=== PATIENT | male | born 1980 | race Caucasian/White ===

== ENCOUNTER → 2017-06-25 | Outpatient (CLI) | payer OTHER ==
[~2017-06-25] MED LIST: AMIT50 PO; Bactrim Ds Tab1 EACH PO; CEPH500 PO; CYCL10 PO; DULO60 PO; HEMOTOB PR; HYDACE5 PO; IBUP600; IBUP800 PO; METR500 PO; OXYACE5T PO; OXYACE7.5T PO; Prednisone20 MG PO; SULTRIDS PO; TRAM50 PO; Zofran Odt4 MG SL
[2017-06-25 07:46] LABS: BASOPHILS ABSOLUTE AUTO 0.02 K/mm3 (0.00-0.23); BASOPHILS PERCENT AUTO 0 % (0-2); EOSINOPHILS ABSOLUTE AUTO 0.16 K/mm3 (0.00-0.68); EOSINOPHILS PERCENT AUTO 2 % (0-6); Hematocrit 42.2 % (37.0-53.0); Hemoglobin 14.7 g/dL (13.5-17.5); IMMATURE GRAN ABSOLUTE AUTO 0.02 K/mm3 (0.00-0.10); IMMATURE GRAN PERCENT AUTO 0 % (0-1); LYMPHOCYTES ABSOLUTE AUTO 1.67 K/mm3 (0.84-5.20); LYMPHOCYTES PERCENT AUTO 18 % (21-46); MONOCYTES ABSOLUTE AUTO 0.81 K/mm3 (0.16-1.47); MONOCYTES PERCENT AUTO 9 % (4-13); Mean Corpuscular HGB 32.9 pg (26.0-34.0); Mean Corpuscular HGB Conc 34.8 g/dL (31.5-36.5); Mean Corpuscular Volume 94 fL (80-100); Mean Platelet Volume 8.8 fL (9.1-12.4); NEUTROPHILS ABSOLUTE AUTO 6.87 K/mm3 (1.96-9.15); NEUTROPHILS PERCENT AUTO 72 % (41-73); Platelet Count 348 K/mm3 (150-400); RDW Coefficient Variation 12.7 % (11.7-14.2); RDW Standard Deviation 43.8 fL (35.1-46.3); Red Blood Cell Count 4.47 M/mm3 (4.30-5.90); White Blood Cell Count 9.55 K/mm3 (4.00-11.30)
[2017-06-25 07:58] LABS: Alanine Aminotransfer (ALT/SGP 32 U/L (12-78); Albumin, Blood 3.8 g/dL (3.4-5.0); Alk Phos 103 U/L (40-126); Anion Gap 8 mmol/L (6-16); Aspartate Aminotrans (AST/SGOT 15 U/L (12-37); Bilirubin, Total 0.3 mg/dL (0.1-1.0); Blood Urea Nitrogen 15 mg/dL (8-24); Bun/Creatinine Ratio 14.2 (12.0-20.0); CO2, Blood 28 mmol/L (21-32); Calcium, Blood 9.3 mg/dL (8.5-10.1); Chloride, Blood 102 mmol/L (98-108); Creatinine, Blood 1.06 mg/dL (0.60-1.20); Globulin, Blood 3.7 g/dL (2.2-4.0); Glomerular Filtration Rate >60 (60-); Glucose, Blood 87 mg/dL (70-99); Potassium, Blood 4.5 mmol/L (3.5-5.5); Sodium, Blood 138 mmol/L (136-145); Total Protein, Blood 7.5 g/dL (6.4-8.2)
== END | disposition home or self-care (01) ==
LOC: LAB EV 07:42 → LAB SHORT 07:42
PROVIDERS: Physician Assistant Medical
DX: R10.30 Lower abdominal pain, unspecified (principal)
CPT/HCPCS: 80053; 83690; 85025

== ENCOUNTER → 2017-07-05 | Outpatient (CLI) | payer OTHER ==
[2017-07-05 11:50] LABS: BASOPHILS ABSOLUTE AUTO 0.03 K/mm3 (0.00-0.23); BASOPHILS PERCENT AUTO 0 % (0-2); EOSINOPHILS ABSOLUTE AUTO 0.79 K/mm3 (0.00-0.68); EOSINOPHILS PERCENT AUTO 8 % (0-6); Hematocrit 45.4 % (37.0-53.0); IMMATURE GRAN ABSOLUTE AUTO 0.04 K/mm3 (0.00-0.10); IMMATURE GRAN PERCENT AUTO 0 % (0-1); LYMPHOCYTES ABSOLUTE AUTO 2.35 K/mm3 (0.84-5.20); LYMPHOCYTES PERCENT AUTO 22 % (21-46); MONOCYTES ABSOLUTE AUTO 0.75 K/mm3 (0.16-1.47); MONOCYTES PERCENT AUTO 7 % (4-13); Mean Corpuscular HGB 32.5 pg (26.0-34.0); Mean Corpuscular HGB Conc 35.2 g/dL (31.5-36.5); Mean Corpuscular Volume 92 fL (80-100); Mean Platelet Volume 9.1 fL (9.1-12.4); NEUTROPHILS ABSOLUTE AUTO 6.55 K/mm3 (1.96-9.15); NEUTROPHILS PERCENT AUTO 62 % (41-73); Platelet Count 403 K/mm3 (150-400); RDW Coefficient Variation 12.9 % (11.7-14.2); RDW Standard Deviation 43.4 fL (35.1-46.3); Red Blood Cell Count 4.92 M/mm3 (4.30-5.90); White Blood Cell Count 10.51 K/mm3 (4.00-11.30)
[2017-07-05 12:02] LABS: Alanine Aminotransfer (ALT/SGP 35 U/L (12-78); Albumin, Blood 3.4 g/dL (3.4-5.0); Albumin/Globulin Ratio 0.9 (0.8-1.8); Alk Phos 101 U/L (40-126); Anion Gap 7 mmol/L (6-16); Aspartate Aminotrans (AST/SGOT 17 U/L (12-37); Bilirubin, Total 0.4 mg/dL (0.1-1.0); Blood Urea Nitrogen 13 mg/dL (8-24); Bun/Creatinine Ratio 11.6 (12.0-20.0); CO2, Blood 28 mmol/L (21-32); Calcium, Blood 8.8 mg/dL (8.5-10.1); Chloride, Blood 103 mmol/L (98-108); Creatinine, Blood 1.12 mg/dL (0.60-1.20); Globulin, Blood 3.7 g/dL (2.2-4.0); Glomerular Filtration Rate >60 (60-); Glucose, Blood 86 mg/dL (70-99); Potassium, Blood 3.6 mmol/L (3.5-5.5); Sodium, Blood 138 mmol/L (136-145); Total Protein, Blood 7.1 g/dL (6.4-8.2)
[2017-07-07 08:17] LABS: Hepatitis C Antibody Non Reactive (NR)
== END | disposition home or self-care (01) ==
LOC: LAB EV 11:46 → LAB SHORT 11:46
PROVIDERS: Physician Assistant
DX: R10.30 Lower abdominal pain, unspecified (principal); R19.7 Diarrhea, unspecified
CPT/HCPCS: 80053; 83690; 85025; 86704; 86708; 86803; 87340

== ENCOUNTER 2017-07-06 05:49 | Inpatient (IN) | payer OTHER ==
[~2017-07-06] VITALS: Ht 180.3 cm; Wt 79.8 kg
[~2017-07-06 05:49] MED LIST changes: -METR500 PO
[2017-07-06 06:30] LABS: BASOPHILS ABSOLUTE AUTO 0.04 K/mm3 (0.00-0.23); BASOPHILS PERCENT AUTO 0 % (0-2); EOSINOPHILS ABSOLUTE AUTO 1.18 K/mm3 (0.00-0.68); EOSINOPHILS PERCENT AUTO 8 % (0-6); Hematocrit 47.2 % (37.0-53.0); Hemoglobin 15.9 g/dL (13.5-17.5); IMMATURE GRAN ABSOLUTE AUTO 0.09 K/mm3 (0.00-0.10); IMMATURE GRAN PERCENT AUTO 1 % (0-1); LYMPHOCYTES ABSOLUTE AUTO 2.58 K/mm3 (0.84-5.20); LYMPHOCYTES PERCENT AUTO 16 % (21-46); MONOCYTES ABSOLUTE AUTO 0.83 K/mm3 (0.16-1.47); MONOCYTES PERCENT AUTO 5 % (4-13); Mean Corpuscular HGB 31.7 pg (26.0-34.0); Mean Corpuscular HGB Conc 33.7 g/dL (31.5-36.5); Mean Corpuscular Volume 94 fL (80-100); NEUTROPHILS PERCENT AUTO 70 % (41-73); Platelet Count 404 K/mm3 (150-400); RDW Coefficient Variation 12.8 % (11.7-14.2); RDW Standard Deviation 44.2 fL (35.1-46.3); Red Blood Cell Count 5.01 M/mm3 (4.30-5.90); White Blood Cell Count 15.72 K/mm3 (4.00-11.30)
[2017-07-06 06:43] LABS: Alanine Aminotransfer (ALT/SGP 29 U/L (12-78); Albumin, Blood 3.3 g/dL (3.4-5.0); Albumin/Globulin Ratio 0.8 (0.8-1.8); Alk Phos 101 U/L (50-136); Anion Gap 7 mmol/L (6-16); Aspartate Aminotrans (AST/SGOT 11 U/L (12-37); Bilirubin, Total 0.4 mg/dL (0.1-1.0); Blood Urea Nitrogen 16 mg/dL (8-24); Bun/Creatinine Ratio 13.9 (12.0-20.0); CO2, Blood 29 mmol/L (21-32); Calcium, Blood 8.3 mg/dL (8.5-10.1); Chloride, Blood 101 mmol/L (98-108); Creatinine, Blood 1.15 mg/dL (0.60-1.20); Globulin, Blood 3.9 g/dL (2.2-4.0); Glomerular Filtration Rate >60 (60-); Glucose, Blood 134 mg/dL (70-99); Potassium, Blood 3.8 mmol/L (3.5-5.5); Sodium, Blood 137 mmol/L (136-145); Total Protein, Blood 7.2 g/dL (6.4-8.2)
[2017-07-06 13:01] LABS: Adenovirus F 40/41 Not Detected (NOT DETECT); Astrovirus Not Detected (NOT DETECT); Campylobacter Sp Not Detected (NOT DETECT); Cryptosporidium Not Detected (NOT DETECT); Cyclospora Cayetanensis Not Detected (NOT DETECT); E. Coli O157 Not Detected (NOT DETECT); Entamoeba Histolytica Not Detected (NOT DETECT); Enteroaggregative E. coli-EAEC Not Detected (NOT DETECT); Enteropathogenic E. coli-EPEC Not Detected (NOT DETECT); Enterotoxigenic E. coli-ETEC Not Detected (NOT DETECT); Giardia Lamblia Not Detected (NOT DETECT); Norovirus GI/GII Not Detected (NOT DETECT); Plesiomonas Shigelloides Not Detected (NOT DETECT); Rotavirus A Not Detected (NOT DETECT); Salmonella Sp Not Detected (NOT DETECT); Sapovirus Not Detected (NOT DETECT); Shiga Toxin-prod E. coli-STEC Not Detected (NOT DETECT); Shigella/Enteroin E. coli-EIEC Not Detected (NOT DETECT); Vibrio Cholerae Not Detected (NOT DETECT); Vibrio Sp Not Detected (NOT DETECT); Yersinia Enterocolitica Not Detected (NOT DETECT)
[2017-07-07 05:02] LABS: BASOPHILS ABSOLUTE AUTO 0.03 K/mm3 (0.00-0.23); BASOPHILS PERCENT AUTO 0 % (0-2); EOSINOPHILS ABSOLUTE AUTO 1.08 K/mm3 (0.00-0.68); EOSINOPHILS PERCENT AUTO 11 % (0-6); Hematocrit 41.6 % (37.0-53.0); IMMATURE GRAN ABSOLUTE AUTO 0.04 K/mm3 (0.00-0.10); IMMATURE GRAN PERCENT AUTO 0 % (0-1); LYMPHOCYTES ABSOLUTE AUTO 2.41 K/mm3 (0.84-5.20); LYMPHOCYTES PERCENT AUTO 25 % (21-46); MONOCYTES ABSOLUTE AUTO 0.73 K/mm3 (0.16-1.47); MONOCYTES PERCENT AUTO 8 % (4-13); Mean Corpuscular HGB 31.7 pg (26.0-34.0); Mean Corpuscular HGB Conc 33.7 g/dL (31.5-36.5); Mean Corpuscular Volume 94 fL (80-100); NEUTROPHILS ABSOLUTE AUTO 5.36 K/mm3 (1.96-9.15); NEUTROPHILS PERCENT AUTO 56 % (41-73); Platelet Count 298 K/mm3 (150-400); RDW Coefficient Variation 12.7 % (11.7-14.2); Red Blood Cell Count 4.41 M/mm3 (4.30-5.90); White Blood Cell Count 9.65 K/mm3 (4.00-11.30)
[2017-07-07 05:36] LABS: Anion Gap 4 mmol/L (6-16); Blood Urea Nitrogen 13 mg/dL (8-24); Bun/Creatinine Ratio 12.5 (12.0-20.0); CO2, Blood 29 mmol/L (21-32); Calcium, Blood 7.6 mg/dL (8.5-10.1); Chloride, Blood 104 mmol/L (98-108); Creatinine, Blood 1.04 mg/dL (0.60-1.20); Glomerular Filtration Rate >60 (60-); Glucose, Blood 83 mg/dL (70-99); Potassium, Blood 4.8 mmol/L (3.5-5.5); Sodium, Blood 137 mmol/L (136-145)
[2017-07-07] MEDS ORDERED: METR500 PO (11:26)
== END 2017-07-07 11:35 | disposition home or self-care (01) | DRG 392 ==
LOC: ER 05:49 → MEDS 08:16 → ENPENDDIS 07-07 11:08 → MEDS 07-07 11:35
PROVIDERS: Emergency Medicine; Hospitalist
DX: A08.4 Viral intestinal infection, unspecified (principal); D72.829 Elevated white blood cell count, unspecified; Z87.11 Personal history of peptic ulcer disease
CPT/HCPCS: 36415; 74019; 74177; 80048; 80053; 81000; 83690; 85025; 86704; 86708; 86803; 87340; 87507; 96361; 96374; 96375; 99285; C9113; J0744; J1170; J3480; J7030; Q9967

== ENCOUNTER 2018-08-09 08:28 | Emergency (ER) | payer OTHER ==
[~2018-08-09] VITALS: Ht 180.3 cm; Wt 88.5 kg
[~2018-08-09 08:28] MED LIST changes: +METR500 PO
[2018-08-09 09:16] LABS: BASOPHILS ABSOLUTE AUTO 0.02 K/mm3 (0.00-0.23); BASOPHILS PERCENT AUTO 0 % (0-2); EOSINOPHILS ABSOLUTE AUTO 0.43 K/mm3 (0.00-0.68); EOSINOPHILS PERCENT AUTO 8 % (0-6); Hematocrit 40.2 % (37.0-53.0); Hemoglobin 13.3 g/dL (13.5-17.5); IMMATURE GRAN ABSOLUTE AUTO 0.01 K/mm3 (0.00-0.10); IMMATURE GRAN PERCENT AUTO 0 % (0-1); LYMPHOCYTES ABSOLUTE AUTO 1.45 K/mm3 (0.84-5.20); LYMPHOCYTES PERCENT AUTO 27 % (21-46); MONOCYTES ABSOLUTE AUTO 0.46 K/mm3 (0.16-1.47); MONOCYTES PERCENT AUTO 9 % (4-13); Mean Corpuscular HGB 31.7 pg (26.0-34.0); Mean Corpuscular HGB Conc 33.1 g/dL (31.5-36.5); Mean Corpuscular Volume 96 fL (80-100); Mean Platelet Volume 9.7 fL (9.1-12.4); NEUTROPHILS ABSOLUTE AUTO 3.01 K/mm3 (1.96-9.15); NEUTROPHILS PERCENT AUTO 56 % (41-73); Platelet Count 243 K/mm3 (150-400); RDW Coefficient Variation 12.2 % (11.7-14.2); RDW Standard Deviation 42.4 fL (35.1-46.3); White Blood Cell Count 5.38 K/mm3 (4.00-11.30)
[2018-08-09 09:46] LABS: Alanine Aminotransfer (ALT/SGP 28 U/L (12-78); Albumin, Blood 3.6 g/dL (3.4-5.0); Albumin/Globulin Ratio 1.1 (0.8-1.8); Alk Phos 97 U/L (50-136); Anion Gap 5 mmol/L (6-16); Aspartate Aminotrans (AST/SGOT 22 U/L (12-37); Bilirubin, Total 0.2 mg/dL (0.1-1.0); Blood Urea Nitrogen 15 mg/dL (8-24); Bun/Creatinine Ratio 20.5 (12.0-20.0); CO2, Blood 25 mmol/L (21-32); Calcium, Blood 8.5 mg/dL (8.5-10.1); Chloride, Blood 108 mmol/L (98-108); Creatinine, Blood 0.73 mg/dL (0.60-1.20); Globulin, Blood 3.3 g/dL (2.2-4.0); Glomerular Filtration Rate >60 (60-); Glucose, Blood 93 mg/dL (70-99); Potassium, Blood 4.8 mmol/L (3.5-5.5); Sodium, Blood 138 mmol/L (136-145); Total Protein, Blood 6.9 g/dL (6.4-8.2)
[2018-08-09] MEDS ORDERED: SENN187 PO (10:20)
[2018-08-09] MEDS ORDERED: METO5A PO (10:20)
[2018-08-09] MEDS ORDERED: Tylenol325 MG PO (10:21)
== END 2018-08-09 10:40 | disposition home or self-care (01) ==
LOC: ER 08:28
PROVIDERS: Physician Assistant
DX: K56.0 Paralytic ileus (principal); K52.9 Noninfective gastroenteritis and colitis, unspecified
CPT/HCPCS: 36415; 74177; 80053; 83690; 85025; 96361; 96374-59; 96375; 99284-25; J1170; J2405; J2765; J7030; Q9967

== ENCOUNTER 2019-11-05 10:55 | Day surgery (SDC) | payer OTHER ==
[~2019-11-05] VITALS: Ht 177.8 cm; Wt 80.7 kg
[~2019-11-05 10:55] MED LIST changes: +LISI10 PO; +METO5A PO; +SENN187 PO; +Tylenol325 MG PO
--- NOTE | 2019-11-05 11:33 | NUR ---
11/05/19 1133 Eddie Olea CALL LIGHT WITHIN REACH
--- NOTE | 2019-11-05 13:51 | NUR ---
11/05/19 1351 Myla Thomas PT. VERBALIZES HE HAS GOTTEN SICK WITH TRAMADOL BEFORE EVEN WHEN TAKING WITH FOOD. PT. VERBALIZES HE CAN TRY IT AGAIN BUT PROBABLY WON'T TAKE IT. DR. VENEGAS WAS IN SURGERY. PT. INSTRUCTED THAT DR. VENEGAS LIKES TO HAVE OTC MEDS FIRST & THEN TAKE PAIN RX IF NEEDED. PT. INSTRUCTED THAT IF TRAMADOL DIDN'T WORK TO CONTACT DR. VENEGAS.
== END 2019-11-05 13:50 | disposition home or self-care (01) ==
LOC: ORSCSDS 10:55
PROVIDERS: Orthopaedic Surgery
PROC: 01N54ZZ Release Median Nerve, Percutaneous Endoscopic Approach (ICD-10-PCS; principal; 2019-11-05 12:00)
DX: G56.02 Carpal tunnel syndrome, left upper limb (principal); I10 Essential (primary) hypertension; F41.8 Other specified anxiety disorders; Z79.899 Other long term (current) drug therapy
CPT/HCPCS: J2250; J3010; J7120

== ENCOUNTER 2020-07-22 19:15 | Emergency (ER) | payer OTHER ==
[~2020-07-22] VITALS: Ht 177.8 cm; Wt 87.5 kg
[2020-07-22 19:45] LABS: BASOPHILS ABSOLUTE AUTO 0.03 K/mm3 (0.00-0.23); BASOPHILS PERCENT AUTO 0 % (0-2); EOSINOPHILS ABSOLUTE AUTO 0.37 K/mm3 (0.00-0.68); EOSINOPHILS PERCENT AUTO 4 % (0-6); Hematocrit 41.8 % (37.0-53.0); Hemoglobin 14.7 g/dL (13.5-17.5); IMMATURE GRAN ABSOLUTE AUTO 0.03 K/mm3 (0.00-0.10); IMMATURE GRAN PERCENT AUTO 0 % (0-1); LYMPHOCYTES ABSOLUTE AUTO 2.27 K/mm3 (0.84-5.20); LYMPHOCYTES PERCENT AUTO 24 % (21-46); MONOCYTES ABSOLUTE AUTO 0.59 K/mm3 (0.16-1.47); MONOCYTES PERCENT AUTO 6 % (4-13); Mean Corpuscular HGB Conc 35.2 g/dL (31.5-36.5); Mean Corpuscular Volume 94 fL (80-100); Mean Platelet Volume 8.7 fL (9.1-12.4); NEUTROPHILS ABSOLUTE AUTO 6.07 K/mm3 (1.96-9.15); NEUTROPHILS PERCENT AUTO 65 % (41-73); Platelet Count 318 K/mm3 (150-400); RDW Coefficient Variation 11.9 % (11.7-14.2); RDW Standard Deviation 41.2 fL (35.1-46.3); Red Blood Cell Count 4.45 M/mm3 (4.30-5.90); White Blood Cell Count 9.36 K/mm3 (4.00-11.30)
[2020-07-22 20:12] LABS: Alanine Aminotransfer (ALT/SGP 35 U/L (12-78); Albumin, Blood 3.6 g/dL (3.4-5.0); Albumin/Globulin Ratio 1.1 (0.8-1.8); Alk Phos 100 U/L (50-136); Anion Gap 5 mmol/L (6-16); Aspartate Aminotrans (AST/SGOT 20 U/L (12-37); Bilirubin, Total 0.3 mg/dL (0.1-1.0); Blood Urea Nitrogen 17 mg/dL (8-24); Bun/Creatinine Ratio 16.7 (12.0-20.0); CO2, Blood 31 mmol/L (21-32); Calcium, Blood 8.5 mg/dL (8.5-10.1); Chloride, Blood 101 mmol/L (98-108); Creatinine, Blood 1.02 mg/dL (0.60-1.20); Globulin, Blood 3.4 g/dL (2.2-4.0); Glomerular Filtration Rate >60 (60-); Glucose, Blood 96 mg/dL (70-99); Potassium, Blood 4.3 mmol/L (3.5-5.5); Sodium, Blood 137 mmol/L (136-145)
== END 2020-07-22 21:00 | disposition left against medical advice (07) ==
LOC: ER 19:15
PROVIDERS: Physician Assistant
DX: R10.9 Unspecified abdominal pain (principal); Z79.899 Other long term (current) drug therapy; Z87.891 Personal history of nicotine dependence
CPT/HCPCS: 36415; 80053; 83690; 85025; 99283

== ENCOUNTER → 2022-02-27 | Outpatient (CLI) | payer OTHER ==
[2022-03-02 08:12] LABS: CHLAMYDIA TRACHOMATIS, NAA Negative (Negative)
== END | disposition home or self-care (01) ==
LOC: LAB SHORT 18:34 → LAB 18:34
PROVIDERS: Physician Assistant
DX: Z11.59 Encounter for screening for other viral diseases (principal)
CPT/HCPCS: 87491; 87591

== ENCOUNTER 2022-03-24 11:15 | Day surgery (SDC) | payer OTHER ==
[~2022-03-24] VITALS: Ht 177.8 cm; Wt 83.0 kg
[2022-03-24] MEDS ORDERED: LISI20 PO (12:00)
[2022-03-24] MEDS ORDERED: LORA10ER (12:02)
[2022-03-24] MEDS ORDERED: OMEP20ER PO (12:02)
== END 2022-03-24 14:51 | disposition home or self-care (01) ==
LOC: ORSCSDS 11:15
PROVIDERS: Podiatrist Foot & Ankle Surgery
PROC: 0Y6X0Z0 Detachment at Right 5th Toe, Complete, Open Approach (ICD-10-PCS; principal; 2022-03-24 12:30)
DX: M20.61 Acquired deformities of toe(s), unspecified, right foot (principal); M20.41 Other hammer toe(s) (acquired), right foot; M79.674 Pain in right toe(s); I10 Essential (primary) hypertension; Z79.899 Other long term (current) drug therapy
CPT/HCPCS: J0690; J1100; J2001; J2250; J2405; J2704; J2795; J3010; J7120

== ENCOUNTER 2022-11-03 21:41 | Inpatient (IN) | payer OTHER ==
[~2022-11-03] VITALS: Ht 182.9 cm; Wt 79.5 kg
[~2022-11-03 21:41] MED LIST changes: +LISI20 PO; +LORA10ER PO; +OMEP20ER PO
[2022-11-03 22:12] LABS: BASOPHILS ABSOLUTE AUTO 0.04 K/mm3 (0.00-0.23); BASOPHILS PERCENT AUTO 1 % (0-2); EOSINOPHILS ABSOLUTE AUTO 0.34 K/mm3 (0.00-0.68); EOSINOPHILS PERCENT AUTO 5 % (0-6); Hematocrit 38.6 % (37.0-53.0); Hemoglobin 13.6 g/dL (13.5-17.5); IMMATURE GRAN ABSOLUTE AUTO 0.02 K/mm3 (0.00-0.10); IMMATURE GRAN PERCENT AUTO 0 % (0-1); LYMPHOCYTES ABSOLUTE AUTO 2.08 K/mm3 (0.84-5.20); LYMPHOCYTES PERCENT AUTO 32 % (21-46); MONOCYTES ABSOLUTE AUTO 0.33 K/mm3 (0.16-1.47); MONOCYTES PERCENT AUTO 5 % (4-13); Mean Corpuscular HGB 32.2 pg (26.0-34.0); Mean Corpuscular HGB Conc 35.2 g/dL (31.5-36.5); Mean Corpuscular Volume 91 fL (80-100); NEUTROPHILS ABSOLUTE AUTO 3.75 K/mm3 (1.96-9.15); NEUTROPHILS PERCENT AUTO 57 % (41-73); Platelet Count 299 K/mm3 (150-400); RDW Coefficient Variation 12.1 % (11.7-14.2); RDW Standard Deviation 40.4 fL (35.1-46.3); Red Blood Cell Count 4.23 M/mm3 (4.30-5.90); White Blood Cell Count 6.56 K/mm3 (4.00-11.30)
[2022-11-03 22:29] LABS: Ethanol (Alcohol), Blood, Med <3 mg/dL; Free Thyroxine 0.96 ng/dL (0.70-1.60); Salicylate <1.7 mg/dL (2.8-20.0)
[2022-11-03] MEDS ORDERED: AMITRIPTYLINE H25 MG PO (22:31)
[2022-11-03 22:32] LABS: Alanine Aminotransfer (ALT/SGP 20 U/L (12-78); Albumin, Blood 3.6 g/dL (3.4-5.0); Albumin/Globulin Ratio 1.1 (0.8-1.8); Alk Phos 101 U/L (50-136); Anion Gap 7 mmol/L (6-16); Aspartate Aminotrans (AST/SGOT 14 U/L (12-37); Bilirubin, Total 0.4 mg/dL (0.1-1.0); Blood Urea Nitrogen 21 mg/dL (8-24); Bun/Creatinine Ratio 17.9 (12.0-20.0); CO2, Blood 25 mmol/L (21-32); Calcium, Blood 8.6 mg/dL (8.5-10.1); Chloride, Blood 107 mmol/L (98-108); Creatinine, Blood 1.17 mg/dL (0.60-1.20); Globulin, Blood 3.2 g/dL (2.2-4.0); Glomerular Filtration Rate 80 (60-); Glucose, Blood 162 mg/dL (70-99); Potassium, Blood 3.6 mmol/L (3.5-5.5); Sodium, Blood 139 mmol/L (136-145); Total Protein, Blood 6.8 g/dL (6.4-8.2)
[2022-11-03] MEDS ORDERED: CYCL10 PO (22:32)
[2022-11-03 22:33] LABS: PO2 Arterial 89.8 mmHg (80-100)
[2022-11-03 22:39] LABS: Acetaminophen, Random <2.0 ug/mL (10.0-30.0)
[2022-11-04] VITALS (63 sets, daily range): BP systolic 101–174; BP diastolic 65–108
[2022-11-04 00:45] LABS: PCO2 Arterial 45.7 mmHg (35-45); PO2 Arterial 97.4 mmHg (80-100); pH Blood Arterial 7.41 (7.35-7.45)
--- NOTE | 2022-11-04 02:00 | NUR ---
ASSUMED CARE AND INTUBATION PATIENT ARRIVED FROM ED AT 0105 PATIENT BARELY RESPONSIVE TO PAIN. ALMOST NO GAG REFLEX. DURING INITIAL SURVEY PATIENT BEGAN TO POSTURE ATIVAN WAS GIVEN AND DR. CERVANTES WAS NOTIFY OF POSSIBLE SEIZURE. CARLSON CATH WAS PLACED. DR. CERVANTES ARRIVED TO ASSESS PATIENT AND DETERMINED TO INTUBATE FOR AIRWAY PROTECTION. @0149 10 OF ETOMOTDATE GIVEN @0150 80 OF ROCORONIUM GIVEN @ [address] CERVANTES NOTIFIED FILIPE GAYTAN AT BEDSIDE OF INTUBATION AND RISK PRIOR TO INTUBATION.
[2022-11-04 02:34] LABS: Source, Urine Foley catheter
[2022-11-04 02:38] LABS: Bilirubin, Urine Neg (Neg); Blood, Urine 1+ (Neg); Glucose Qualitative, Urine 1+ (Neg); Ketones, Urine Neg (Neg); Leukocyte Esterase, Urine Neg (Neg); Nitrite, Urine Neg (Neg); Protein, Urine 1+ (Neg); Specific Gravity, Urine 1.015 (1.003-1.022); Urobilinogen, Urine NORM (Normal)
[2022-11-04 02:39] LABS: Appearance, Urine Clear (Clear); Color, Urine Yellow (P-Yellow)
[2022-11-04 03:01] LABS: Amorphous Light (0-Heavy); Bacteria Not Seen /hpf; Mucus Light (0-Heavy); Red Blood Cells, Urine 0-2 /hpf (0-2); Squamous Epithelial Cells Rare /hpf (Few); White Blood Cells, Urine 0-2 /hpf (0-5)
[2022-11-04 03:14] LABS: U Amphetamine Screen DETECTED; U Barbituate Screen Not Detected; U Benzodiazapine Screen DETECTED; U Buprenorphine Screen Not Detected; U Cannabinoids Screen DETECTED; U Cocaine Screen Not Detected; U Methadone Screen DETECTED; U Methamphetamine Screen DETECTED; U Opiates Screen Not Detected; U Oxycodone Screen Not Detected; U Phencyclidine Screen Not Detected; U Propoxyphene Screen Not Detected
[2022-11-04 03:33] LABS: BASOPHILS ABSOLUTE AUTO 0.03 K/mm3 (0.00-0.23); BASOPHILS PERCENT AUTO 0 % (0-2); EOSINOPHILS ABSOLUTE AUTO 0.21 K/mm3 (0.00-0.68); EOSINOPHILS PERCENT AUTO 3 % (0-6); Hematocrit 36.4 % (37.0-53.0); Hemoglobin 12.6 g/dL (13.5-17.5); IMMATURE GRAN ABSOLUTE AUTO 0.01 K/mm3 (0.00-0.10); IMMATURE GRAN PERCENT AUTO 0 % (0-1); LYMPHOCYTES ABSOLUTE AUTO 1.62 K/mm3 (0.84-5.20); LYMPHOCYTES PERCENT AUTO 23 % (21-46); MONOCYTES PERCENT AUTO 6 % (4-13); Mean Corpuscular HGB 31.7 pg (26.0-34.0); Mean Corpuscular HGB Conc 34.6 g/dL (31.5-36.5); Mean Corpuscular Volume 92 fL (80-100); Mean Platelet Volume 8.8 fL (9.1-12.4); NEUTROPHILS ABSOLUTE AUTO 4.65 K/mm3 (1.96-9.15); NEUTROPHILS PERCENT AUTO 67 % (41-73); Platelet Count 277 K/mm3 (150-400); RDW Coefficient Variation 12.2 % (11.7-14.2); RDW Standard Deviation 41.1 fL (35.1-46.3); Red Blood Cell Count 3.97 M/mm3 (4.30-5.90); White Blood Cell Count 6.92 K/mm3 (4.00-11.30)
[2022-11-04 03:50] LABS: Bilirubin, Total 0.4 mg/dL (0.1-1.0); Bun/Creatinine Ratio 20.4 (12.0-20.0); Creatinine, Blood 1.03 mg/dL (0.60-1.20); Globulin, Blood 2.9 g/dL (2.2-4.0); Potassium, Blood 3.7 mmol/L (3.5-5.5); Total Protein, Blood 5.9 g/dL (6.4-8.2)
[2022-11-04 05:12] LABS: Base Excess Venous 4.1 mmol/L; Bicarbonate Venous 27.8 mmol/L (24.0-30.0); PCO2 Venous 38.8 mmHg (38-42); pH Blood Venous 7.46 (7.34-7.37)
--- NOTE | 2022-11-04 06:16 | NUR ---
SHIFT SUMMARY PATIENT CONTINUES TO BE INTUBATED/SEDATED. VS STABLE. NO FURTHER SEIZURES NOTED. PATIENT MORE RESPONSIVE TO PAINFUL STIMULI. STILL NOT OPENING EYES OR FOLLOWING COMMANDS. CARLSON CATH TO GRAVITY. UNABLE TO PROVIDE PATIENT EDUCATION REGARDING IGNITION RISK D/T INTUBATION/SEDATION. FAMILY NOT CURRENTLY AT BEDSIDE.
--- NOTE | 2022-11-04 07:10 | NUR ---
Assumed care. Report received from nightshift RN. Pt sedated and ventilated via ETT. Vent settings: AC/VC 15/550/5/30%. Propofol infusing at 10 mcg/kg/min. PIVs in place, R&L/forearms. SWB restraints in place. Temp-probe murcia in place, draining to gravity. VS stable, no acute needs ATT.
--- NOTE | 2022-11-04 18:36 | NUR ---
Shift summary. Pt continues sedated and ventilated. No changes to vent settings this shift. Propofol titrated up to 30 mcg/kg/min for agitation/vent compliance. No ignition sources noted during pt assessment, education deferred until pt is off sedation and able to verbalize understanding of fire dangers w/oxygen use. See assessment/chart for further details. VS stable, will continue to monitor and report off to nightshift RN.
--- NOTE | 2022-11-04 19:38 | NUR ---
ASSUMED CARE PT IS CURRENTLY INTUBATED AND SEDATED W/ SETTINGS AT 15/550/5/30%; PROPOFOL GTT TITRATING (SEE FLOWSHEET). WHEN FIRST ARRIVING ON SHIFT PT WAS EXTREMELY AGITATED AND BUCKING AGAINST RESTRAINTS/FIGHTING VENTILATOR. PROPOFOL INCREASED AND FENTANYL ORDER RECEIVED FROM HOSPITALIST AND PT IS NOW RESTING QUIETLY W/ PROPOFOL BACK AT INITIAL RATE. PT FOLLOWS COMMANDS (OPENS EYES AND SQUEEZES HAND ON COMMAND); SEDATION VACATION TO BE DONE LATER D/T PT'S EXTREME AGITATION AT START OF SHIFT. SPO2 >92%; MAP >65; NSR 70~'S. CARLSON CATHETER PATENT AND DRAINING TO GRAVITY.
[2022-11-05] VITALS (16 sets, daily range): BP systolic 94–148; BP diastolic 59–92
[2022-11-05 03:06] LABS: BASOPHILS ABSOLUTE AUTO 0.04 K/mm3 (0.00-0.23); BASOPHILS PERCENT AUTO 1 % (0-2); EOSINOPHILS ABSOLUTE AUTO 0.33 K/mm3 (0.00-0.68); EOSINOPHILS PERCENT AUTO 5 % (0-6); Hemoglobin 11.5 g/dL (13.5-17.5); IMMATURE GRAN ABSOLUTE AUTO 0.01 K/mm3 (0.00-0.10); IMMATURE GRAN PERCENT AUTO 0 % (0-1); LYMPHOCYTES ABSOLUTE AUTO 1.85 K/mm3 (0.84-5.20); LYMPHOCYTES PERCENT AUTO 29 % (21-46); MONOCYTES ABSOLUTE AUTO 0.48 K/mm3 (0.16-1.47); MONOCYTES PERCENT AUTO 7 % (4-13); Mean Corpuscular HGB 31.9 pg (26.0-34.0); Mean Corpuscular HGB Conc 34.8 g/dL (31.5-36.5); Mean Corpuscular Volume 92 fL (80-100); Mean Platelet Volume 9.1 fL (9.1-12.4); NEUTROPHILS ABSOLUTE AUTO 3.78 K/mm3 (1.96-9.15); NEUTROPHILS PERCENT AUTO 58 % (41-73); Platelet Count 240 K/mm3 (150-400); RDW Coefficient Variation 12.6 % (11.7-14.2); RDW Standard Deviation 42.2 fL (35.1-46.3); White Blood Cell Count 6.49 K/mm3 (4.00-11.30)
[2022-11-05 03:40] LABS: Bun/Creatinine Ratio 16.8 (12.0-20.0); Creatinine, Blood 1.19 mg/dL (0.60-1.20); Magnesium, Blood 2.2 mg/dL (1.6-2.4); Phosphorus, Blood 2.1 mg/dL (2.5-4.9); Potassium, Blood 3.6 mmol/L (3.5-5.5)
--- NOTE | 2022-11-05 04:41 | NUR ---
SHIFT SUMMARY PT RESTED QUIETLY T/O NIGHT EXCEPT FOR 3-4 OCCASIONS WHERE PT BECAME AGITATED AND FOUGHT VENTILATOR/PULLING AT RESTRAINTS. DURING ONE OF THESE EVENTS PT WAS ABLE TO COMMUNICATE APPROPRIATELY W/ NODDING OF HEAD TO INFORM THIS RN THAT HE WAS IN PAIN. CURRENTLY PROPOFOL GTT AND LR INFUSING (SEE FLOWSHEET/ORDER). CHG BATH GIVEN. SPO2 >92% ON VENTILATOR; MAP >65; NSR. CARLSON CATHETER PATENT AND DRAINING TO GRAVITY.
--- NOTE | 2022-11-05 08:26 | NUR ---
IGNITION EDUCATION PT INTUBATED AND SEDATED. WILL CONTINUE TO ASSESS RISK PT CONDITION CHANGES. NO VISITORS IN ROOM AT THIS TIME.
--- NOTE | 2022-11-05 10:59 | NUR ---
EXTUBATE WITH SEDATION CUT IN HALF PT WAKING IS RESPONDING AND FOLLOWING COMMANDS. DR. ZHU TO THE BEDSIDE AND SWITCHED PT TO SPONTANEOUS MODE. AFTER ASSESSING PT, DR. ZHU GAVE OK TO EXTUBATE. SEDATION TURNED ALL THE WAY OFF AND RT KAMARI NOTIFIED. NURSING MARKETING EFFECTIVENESS MANAGER NOTIFIED OF NEED FOR SITTER. PT EXTUBATED AT 1038 AND RESTRAINTS DC'D AT THE SAME TIME. PT CALM AND COOPERATIVE AT TIME OF EXTUBATION. PT'S VOICE RASPY AND ASKING IF ANYTHING WAS REMOVED FROM HIM. EXPLAINED TO HIM THAT THE BREATHING TUBE WAS TAKEN OUT. PT ASKED AGAIN IF ANYTHING WAS REMOVED FROM HIS BODY. EXPLAINED TO PT THAT HE HAD A BREATHING TUBE AND THAT WAS TKAEN OUT, BUT NOTHING ELSE. EXPLAINED THAT HE DID NOT HAVE SURGERY, THAT HIS BREATHING JUST NEEDED HELP. PT THEN CLOSED HIS EYES AND IS RESTING NOW. PT'S MOM AND SO AT THE BEDSIDE CURRENTLY AND WERE UPDATED.
--- NOTE | 2022-11-05 11:49 | NUR ---
PT IS WAKING UP MORE HE IS BECOMING MORE IRRITABLE AND PARANOID. HIS MOTHER IS AT THE BEDSIDE AND HE IS TELLING HER THAT THE STAFF IS ACTING "FISHY." PT SAID HE IS IN PAIN, BUT WON'T SAY WHERE. HE SAYS HE JUST WANTS TO LEAVE, TERMS OF HOSPITAL HOLD EXPLAINED. PT STILL AGITATED AND WANTS TO BE LEFT WITH HIS MOM. PT'S MOM HAS REMAINED CALM AND SUPPORTIVE SO EXPLAINED TO BOTH OF THEM THAT SHE CAN STAY FOR NOW, BUT IF HE GETS MORE WORKED UP THEN SHE WILL HAVE TO LEAVE TO HELP REDUCE STIMULI AND CREATE A SAFE SPACE FOR HIM.
--- NOTE | 2022-11-05 12:35 | NUR ---
PT RESTED BRIEFLY, THEN STARTED GETTING AGITATED AND PARANOID AGAIN. HE IS CONVINCED THE 1:1 SITTER IS A ROBOT AND IS ACCUSING ALL THE STAFF OF LYING. HE IS PARANOID ABOUT THE HEART MONITOR AND IV FLUIDS GOING INTO HIM. SPOKE WITH DR. ZHU AND RECEIVED OK TO DOWNGRADE PT, REMOVE THE TELE AND TO DC THE IV FLUIDS. PT IS SOMEWHAT REDIRECTABLE AND CONSIDERS WHAT STAFF SAY, BUT STILL DOESN'T TRUST ANYBODY. PT GIVEN ATIVAN TO HELP WITH THE AGITATION AND IT APPEARS TO BE HELPING PT IS RESTING. ROBYN WAS ALSO DC'D AND PT GIVEN URINAL.
--- NOTE | 2022-11-05 13:23 | NUR ---
PT STOOD TO VOID WITH 2 PERSON ASSIST AFTER HE WAS UNABLE TO VOID LYING DOWN OR SITTING AT THE BEDSIDE. PT WAS GROGGY, BUT COOPERATIVE. SPO2 REMAINS GREATER THAN 90% ON RA ON SPOT CHECK. PT BACK IN BED RESTING WITH EYES CLOSED. CONTINUING TO MONITOR.
--- NOTE | 2022-11-05 13:39 | NUR ---
PT AGITATED ONCE AGAIN. MAD THAT HE CAN'T LEAVE THE HOSPITAL. CUSSING AT THE STAFF. DEMANDING TO KNOW WHY HE IS HERE. EXPLAINED TO HIM THAT HE SENT A TEXT TO HIS SO THAT HE WANTED TO AND TOOK A BUNCH OF PILLS. AT FIRST PT DENIED SENDING ANY MESSAGES, THEN ASKED IF IT WAS PAUL THAT HE SENT THE MESSAGE AND SAID "YEAH, I DID SEND PAUL A MESSAGE THAT I WANTED TO ." PT STILL AGITATED EVEN AFTER ADMITTING THAT. APPEARS TO MOSTLY BE MAD THAT HE CAN'T LEAVE.
--- NOTE | 2022-11-05 14:47 | NUR ---
PT IS CONCERNED THAT THERE IS SOEMTHING WRONG WITH THIS HOSPITAL. WHEN ASKED TO ELABORATE HE SAYS THAT HOSPITALS SHOULD HAVE "PICTURES OF BODY PARTS ON THE [place]." PT REQUESTING TO BE TRANSFERRED TO [facility]. PT TOLD HE IS AT [facility] AND SHOWN THE NAME OF THE HOSPITAL ON [address]. PT SAYS HE WANTS TO GO TO [facility] IN [place]. PT REASSURED THAT HE IS AT [facility] IN HOSPITAL IN [place], BUT PT STILL UPSET. PT STARTED ASKING WHAT HAPPENS IF HE LEAVES. EXPLAINED THAT SECURITY WILL BE NOTIFIED TO BRING HIM BACK AND PT STATES "GOOD, THEY'LL KILL ME." PT TOLD THAT SECURITY WOULD NOT KILL HIM, JUST BRING HIM BACK TO HIS ROOM. PT THEN GETS DISTRAUGHT SAYING HE DOESN'T KNOW WHAT'S WRONG WITH THE WORLD. SUPPORT PROVIDED ABLE. PT GIVEN THE LUNCH HE HAD REQUESTED AND IS CURRENTLY EATING.
--- NOTE | 2022-11-05 17:03 | NUR ---
SHIFT SUMMARY PT WAS EXTUBATED TODAY AND HAS DONE WELL, MAINTAINING SPO2 ABOVE 90% ON RA. WHEN ASKED HE DENIES THAT HE WAS TRYING TO KILL HIMSELF OR IS HAVING SUICIDAL THOUGHTS, BUT THROUGHOUT THE AFTERNOON HE HAS MADE COMMENTS THAT SUGGEST OTHERWISE (SEE PREVIOUS NOTES). HIS MOOD IS LABILE. HE IS CALM AND COOPERATIVE AT TIMES, BUT THEN BECOMES PARANOID AND AGITATED, ESPECIALLY WHEN HE FOCUSES ON THE HOSPTIAL HOLD AND THAT HE CAN'T LEAVE. HE IS EATING WITHOUT ANY SIGNS OF SWALLOWING COMPLICATIONS. HE HAS VOIDED ONCE SINCE CARLSON WAS REMOVED. HIS MOM AND SO VISISTED AND WERE UPDATED. REMAINS ON 1:1 OBSERVATION FOR SUICIDE RISK.
--- NOTE | 2022-11-05 19:53 | NUR ---
ASSUMED CARE: Received bedside report from Isa PEREZ. Safety checks performed. All unnecessary items removed from room- [facility]. Pt is cooperative at times and anxious/ agitated at other times. Tried to get out of bed and was redirected by 1:1 sitter. He told her that he wanted "a new observer" because she wouldn't let him get out of bed without assistance. 2mg ativan given for agitation. Now, pt is more calm and cooperative. Vitals stable, all body systems within normal limits. Eating and drinking, voiding using urinal. Now he states that he wants to sleep.
[2022-11-06 03:13] VITALS: BP 140/84
[2022-11-06] MEDS ORDERED: OMEP20ER PO (03:59)
[2022-11-06 04:04] LABS: BASOPHILS ABSOLUTE AUTO 0.05 K/mm3 (0.00-0.23); BASOPHILS PERCENT AUTO 0 % (0-2); EOSINOPHILS ABSOLUTE AUTO 0.17 K/mm3 (0.00-0.68); EOSINOPHILS PERCENT AUTO 1 % (0-6); Hematocrit 35.8 % (37.0-53.0); Hemoglobin 12.5 g/dL (13.5-17.5); IMMATURE GRAN ABSOLUTE AUTO 0.05 K/mm3 (0.00-0.10); IMMATURE GRAN PERCENT AUTO 0 % (0-1); LYMPHOCYTES ABSOLUTE AUTO 1.33 K/mm3 (0.84-5.20); LYMPHOCYTES PERCENT AUTO 11 % (21-46); MONOCYTES ABSOLUTE AUTO 0.81 K/mm3 (0.16-1.47); MONOCYTES PERCENT AUTO 7 % (4-13); Mean Corpuscular HGB 32.1 pg (26.0-34.0); Mean Corpuscular HGB Conc 34.9 g/dL (31.5-36.5); Mean Corpuscular Volume 92 fL (80-100); Mean Platelet Volume 9.6 fL (9.1-12.4); NEUTROPHILS ABSOLUTE AUTO 9.37 K/mm3 (1.96-9.15); NEUTROPHILS PERCENT AUTO 80 % (41-73); Platelet Count 261 K/mm3 (150-400); RDW Coefficient Variation 12.2 % (11.7-14.2); RDW Standard Deviation 40.9 fL (35.1-46.3); White Blood Cell Count 11.78 K/mm3 (4.00-11.30)
--- NOTE | 2022-11-06 04:18 | NUR ---
TRANSFER NOTE: Pt transferred at 0415 to medical floor with 1:1 sitter in possession of all belongings via wheelchair.
[2022-11-06 04:20] LABS: Bun/Creatinine Ratio 12.5 (12.0-20.0); Creatinine, Blood 1.12 mg/dL (0.60-1.20); Magnesium, Blood 1.9 mg/dL (1.6-2.4); Potassium, Blood 3.8 mmol/L (3.5-5.5)
--- NOTE | 2022-11-06 04:45 | NUR ---
PT CAME UP IN WC ACCOMPANIED BY SITTER ROOM CHECKED FOR CORDS AND OTHER UNSAFE ITEMS. PT TRANSFRED FROM W/C TO BED WITH 1 PERSON ASSIST. PT UNSTEADY ON HIS FEET. PT RESTING IN BED, PT ASLEEP. SITTER VIEWING PT FROM DOOR WAY.
[2022-11-06 10:25] VITALS: BP 129/83
[2022-11-06 17:03] VITALS: BP 133/86
--- NOTE | 2022-11-06 18:37 | NUR ---
PT AOX4 JUST VERY TIRED AND SLEEPING FOR LONG SPELLS. PT ABLE TO MAKE NEEDS KNOWN. TREATED FOR BACK AND NECK PAIN PER EMAR. PT DID REPORT SOME ANXIETY AND MEDICATIONS HAVE BEEN ADDED TO EMAR PRN. NO DISTRESS NOTED AT THIS TIME AND CALL LIGHT WITHIN REACH. WILL CONTINUE TO MONITOR.
[2022-11-06 20:26] VITALS: BP 127/84
--- NOTE | 2022-11-07 04:28 | NUR ---
SHIFT SUMMERY, PT RESTIG IN BED, PT SLEEPING ON AND OFF. ERALIER IN SHIFT PTS SI HERE AT PT BEDSIDE. PT SIGNED INFORMATION PERMITION FOR SI TO GET INFORMATION. PT AND SI INFORMED ABOUT NOT HAVING THINGS IN ROOM THAT MIGHT CAUSE O2 TO IGNIGHT LIKE SPARE PARTS CLERK PT HAS NO O2 ON BOTH VU. SITTER OBSERVING PT.
[2022-11-07 05:54] VITALS: BP 128/87
[2022-11-07 07:12] VITALS: BP 135/85
[2022-11-07 12:57] LABS: SARS-Cov-2 (COVID-19) PCR, MMC NEGATIVE (NEGATIVE)
[2022-11-07 13:54] VITALS: BP 135/85
[2022-11-07 14:52] VITALS: BP 135/85
[2022-11-07 15:24] VITALS: BP 118/92
--- NOTE | 2022-11-07 16:21 | NUR ---
PT AOX4 AND COOPERATIVE OF CARE. PT ABLE TO BE A STANDBY ASSIST TO RESTROOM FOR SHOWER TODAY. PT HAD FAMILY IN TO VISIT NO DISTRESS NOTED. PT WAS INFORMED HE IS TO TRANSFER TO [facility] FOR PSYC CARE. PT STATE HE DID NOT LIKE [facility] AND HAD PREVIOUSLY CHECKED HIMSELF OUT. HIS SIGNIFICANT OTHER WAS ALSO NOTIFIED AND DID NOT WANT HIM TO GO. PT NEED FOR THIS AVAILBLE BED WAS DISCUSSED BY NURSES WITH PT AND WELL DR MURPHY. SECURE TRANSPORT HAS BEEN COMFIRMED FOR 11/10/22 BETWEEN [id number]. [facility] IS AWARE OF EARLY TRANSPORT TIME. PT WAS TREATED FOR SOME ANXIETY TODAY PER EMAR. SITTER IS WITH PT WILL CONTINUE TO MONITOR.
[2022-11-07 19:14] VITALS: BP 128/85
--- NOTE | 2022-11-08 02:57 | NUR ---
SHIFT SUMMERY. PT HAS BEEN SLEEPING WELL AND HAD A HS SNACK , SITTER AT BEDSIDE. PT REMINDED OF FIRE SAFETY AND HAS A SITTER IN ROOM WITH HIM. CALL [facility] ESTMATED ETA ABOUT 0330. PT TO BE TRANSPAOTED TO [facility] IN [place] FOR [place].
--- NOTE | 2022-11-08 04:27 | NUR ---
PT JUST LEFT WITH [facility]URE TRANSPORT, PT HAD SHOWER AND WAS GIVEN AN ATIVAN BEFORE DC.
== END 2022-11-08 04:26 | DRG 917 ==
LOC: ER 21:41 → ICUE 21:42 → MEDS 11-06 04:21
PROVIDERS: Emergency Medicine; Internal Medicine; Internal Medicine Critical Care Medicine; ADMIT Internal Medicine
PROC: 5A1935Z Respiratory Ventilation, Less than 24 Consecutive Hours (ICD-10-PCS; principal; 2022-11-04)
PROC: 0BH17EZ Insertion of Endotracheal Airway into Trachea, Via Natural or Artificial Opening (ICD-10-PCS; 2022-11-04)
PROC: 0T9B70Z Drainage of Bladder with Drainage Device, Via Natural or Artificial Opening (ICD-10-PCS; 2022-11-04)
PROC: 4A133R1 Monitoring of Arterial Saturation, Peripheral, Percutaneous Approach (ICD-10-PCS; 2022-11-04)
DX: T43.012A Poisoning by tricyclic antidepressants, intentional self-harm, initial encounter (principal); G92.8 Other toxic encephalopathy; J96.01 Acute respiratory failure with hypoxia; F15.20 Other stimulant dependence, uncomplicated; Z20.822 Contact with and (suspected) exposure to COVID-19; I10 Essential (primary) hypertension; F43.10 Post-traumatic stress disorder, unspecified; T40.3X2A Poisoning by methadone, intentional self-harm, initial encounter; M54.9 Dorsalgia, unspecified; G89.29 Other chronic pain; F32.A Depression, unspecified; R94.31 Abnormal electrocardiogram [ECG] [EKG]; Z87.11 Personal history of peptic ulcer disease; Z79.811 Long term (current) use of aromatase inhibitors; Z88.8 Allergy status to other drugs, medicaments and biological substances; Z89.429 Acquired absence of other toe(s), unspecified side; Z90.49 Acquired absence of other specified parts of digestive tract; Z98.890 Other specified postprocedural states; Z87.81 Personal history of (healed) traumatic fracture; Z87.19 Personal history of other diseases of the digestive system; Z79.899 Other long term (current) drug therapy; X58.XXXA Exposure to other specified factors, initial encounter
CPT/HCPCS: 31500; 36415; 36600; 51702; 70450; 71045; 80048; 80053; 81001; 82803; 82947; 83735; 83880; 84100; 84439; 84443; 85025; 93005; 93010; 94002; 94003; 96361; 96372; 96374; 96375; 96376; 99285-25; A9270; G0378; G0480; J1650; J2060; J2704; J3010; J7030; J7070; J7120; U0002

== ENCOUNTER 2023-06-22 16:57 | Emergency (ER) | payer OTHER ==
[~2023-06-22] VITALS: Ht 177.8 cm; Wt 90.7 kg
[~2023-06-22 16:57] MED LIST changes: +AMITRIPTYLINE H25 MG PO
[2023-06-22 18:56] VITALS: BP 114/77
[2023-06-22] MEDS ORDERED: Doxycycline Hyclate 100 MG TAB PO ONE (19:35)
[2023-06-22] MEDS ORDERED: Vibramycin100 MG PO (19:37)
== END 2023-06-22 19:43 | disposition home or self-care (01) ==
LOC: ER 16:57
DX: N45.1 Epididymitis (principal); I10 Essential (primary) hypertension; F43.10 Post-traumatic stress disorder, unspecified; Z79.899 Other long term (current) drug therapy; Z88.6 Allergy status to analgesic agent
CPT/HCPCS: 76870; 99284-25; A9270

== ENCOUNTER → 2023-11-05 | Outpatient (CLI) | payer OTHER ==
[~2023-11-05] MED LIST changes: +Vibramycin100 MG PO
== END ==
LOC: LAB SHORT 12:40 → LAB 12:40
DX: E03.9 Hypothyroidism, unspecified (principal)
CPT/HCPCS: 84443